=== PATIENT | female | born 1975 | race African-American/Black ===

== ENCOUNTER 2024-09-08 18:23 | Emergency (ER) | payer MEDICAID ==
[~2024-09-08] VITALS: Ht 170.2 cm; Wt 170.0 kg
[2024-09-08 18:30] VITALS: O2SAT 100
[2024-09-08 18:50] VITALS: TEMP 36.9
[2024-09-08 19:32] LABS: BASOPHILS % 0.1 % (0.0-2.0); EOSINOPHILS % 0.2 % (0.0-5.0); HEMOGLOBIN. 7.4 g/dL (12.0-16.0); LYMPHOCYTES % 9.5 % (20.0-50.0); MEAN CORPUSCULAR HEMOGLOBIN 26.5 pg (28.0-32.0); MEAN CORPUSCULAR HGB CONC 32.3 g/dL (31.0-37.0); MEAN CORPUSCULAR VOLUME 82.1 fL (81.0-99.0); MEAN PLATELET VOLUME 9.5 fl (7.4-10.4); MONOCYTES % 5.2 % (2.0-8.0); PLATELET 503 x1000/uL (130-400); RED CELL DISTRIBUTION WIDTH 21.2 % (11.6-14.6); WHITE BLOOD COUNT 13.5 x1000/uL (4.5-11.0)
[2024-09-08 19:38] LABS: CHLORIDE 108 mEq/L (98-107); POTASSIUM 3.9 mEq/L (3.5-5.1); SODIUM 146 mEq/L (136-145)
[2024-09-08 19:39] LABS: CALCIUM 8.9 mg/dL (8.7-10.4); CARBON DIOXIDE 32 mEq/L (21-32)
[2024-09-08 19:44] LABS: CREATININE 0.9 mg/dL (0.6-1.0); GLUCOSE 196 mg/dL (70-105); TROPONIN I HIGH SENSITIVITY 18 ng/L (3.0-34); UREA NITROGEN BLOOD 25 mg/dL (9-23)
[2024-09-08 19:45] LABS: AMMONIA 18 uMol/L (<32)
[2024-09-08 19:46] LABS: ALANINE AMINOTRANSFERASE 44 IU/L (10-49); ALBUMIN 2.4 g/dL (3.2-4.8); ASPARTATE AMINOTRANSFERASE 77 IU/L (<34); INR 1.6; PROTEIN TOTAL 8.2 g/dL (6.0-8.3); PROTHROMBIN TIME 17.7 sec (9.6-11.0)
[2024-09-08 21:21] LABS: TROPONIN I HIGH SENSITIVITY 16 ng/L (3.0-34)
[2024-09-08] MEDS: VANCOMYCIN 1G PREMIX 200 ML IV STA (21:36)
[2024-09-08] MEDS: ENOXAPARIN 150MG/ML SYR SUBCUT NR (22:00)
[2024-09-08] MEDS: IOHEXOL-350 100 ML BOTTLE ONE (23:32)
[2024-09-09] MEDS: PIPERACILLIN/TAZO 3.375G/50ML 50 ML IV STA (00:07)
[2024-09-09 02:12] VITALS: BP 126/82; PULSE 119; RESP 16; O2SAT 96
== END 2024-09-09 02:42 | disposition short-term general hospital (02) ==
LOC: ER 18:23
DX: J90 Pleural effusion, not elsewhere classified (principal); I26.99 Other pulmonary embolism without acute cor pulmonale; I11.0 Hypertensive heart disease with heart failure; I50.9 Heart failure, unspecified; E11.9 Type 2 diabetes mellitus without complications; Z85.038 Personal history of other malignant neoplasm of large intestine; Z85.3 Personal history of malignant neoplasm of breast
CPT/HCPCS: 80076; 80048; 82140; 83880; 83605; 85025; 85610; 86850; 86900; 86901; 87040; 84484; 36415; 71045; 71275; 96365; 96366; 96372; 99285; 96367; Q9967; J1650; J2543; J3370; Z7610